=== PATIENT | male | born 1935 | race Caucasian/White ===

== ENCOUNTER → 2017-05-21 | Outpatient (CLI) | payer MEDICARE ==
[~2017-05-21] VITALS: Ht 180.3 cm; Wt 77.1 kg
[~2017-05-21] MED LIST: COGNIUM PO; FOCUS FACTOR PO
== END ==
LOC: PREOP 05:36
PROVIDERS: ATTEND Surgery
DX: Z01.818 Encounter for other preprocedural examination (principal); Z12.11 Encounter for screening for malignant neoplasm of colon; K21.9 Gastro-esophageal reflux disease without esophagitis

== ENCOUNTER 2017-06-02 10:53 | Day surgery (SDC) | payer MEDICARE, OTHER ==
[~2017-06-02] VITALS: Ht 180.3 cm; Wt 77.1 kg
[2017-06-02] MEDS ORDERED: LACTATED RINGERS 1,000 ML IV STA (11:07)
[2017-06-02 11:10] VITALS: BP 160/93
[2017-06-02] MEDS ORDERED: HURRICAINE EXT TUBE (BENZOCAINE) ONE (11:11)
[2017-06-02] MEDS ORDERED: LACTATED RINGERS 1,000 ML IV ONE ×2 (11:12→11:14)
[2017-06-02] MEDS ORDERED: PROPOFOL INJECTION 0 ML IV ONE (11:16)
[2017-06-02] MEDS ORDERED: LIDOCAINE PF 2% 5 ML (XYLOCAINE) VIAL ONE (11:16)
[2017-06-02] MEDS ORDERED: proPOfol 200 MG/20 ML (DIPRIVAN) VIAL IV ONE (11:33)
--- NOTE | 2017-06-02 11:37 | Progress Note-Pre Operative ---
Pre-Operative Progress Note H&P Reviewed The H&P was reviewed, patient examined and no changes noted. Date Seen by Provider: Jun 02, 2017 Time Seen by Provider: 11:37 Date H&P Reviewed: Jun 02, 2017 Time H&P Reviewed: 11:37 Pre-Operative Diagnosis: gerd ROXANA SLOAN DO Jun 02, 2017 11:37
[2017-06-02] MEDS ORDERED: CALC500T7 PO (11:42)
[2017-06-02] MEDS ORDERED: HURRICAINE EXT TUBE (BENZOCAINE) XX ONE (11:45)
--- NOTE | 2017-06-02 11:50 | Progress Note-Post Operative ---
Post-Operative Progess Note Surgeon (s)/Manager Cosmetic (s) Surgeon ROXANA SLOAN DO Manager Cosmetic: na Pre-Operative Diagnosis gerd Post-Operative Diagnosis hiatal hernia, reflux esophagitis Procedure & Operative Findings Date of Procedure 06/02/17 Procedure Performed/Findings egd c biopsies Anesthesia Type per manager process improvement Estimated Blood Loss Estimated blood loss (mL): none Specimens/Packing Specimens Removed antrum, GE ROXANA SLOAN DO Jun 02, 2017 11:50
[2017-06-02] MEDS ORDERED: SUCR1TAB36 PO (11:51)
[2017-06-02] MEDS ORDERED: PANT40TA2 PO (11:51)
--- NOTE | 2017-06-02 11:53 | Discharge Inst-Simple/Standard ---
Discharge Inst-Standard Discharge Medications New, Converted or Re-Newed RX: RX on Chart Patient Instructions/Follow Up Plan of Care/Instructions/FU: 3 weeks fe Activity as Tolerated: Yes Discharge Diet: Regular Diet ROXANA SLOAN DO Jun 02, 2017 11:53
[2017-06-02 12:10] VITALS: BP 134/77
[2017-06-02 12:30] VITALS: BP 146/84
--- NOTE | 2017-06-02 12:36 | Anesthesia-General Post-Op ---
MAC Patient Condition Mental Status/LOC: Same as Preop Cardiovascular: Satisfactory Nausea/Vomiting: Absent Respiratory: Satisfactory Pain: Controlled Complications: Absent Post Op Complications Complications None Follow Up Care/Instructions Patient Instructions None needed. Anesthesiology Discharge Order Discharge Order Patient is doing well, no complaints, stable vital signs, no apparent adverse anesthesia problems. No complications reported per nursing. SNOW LUCIO CRNA Jun 02, 2017 12:36
[2017-06-02 13:05] VITALS: BP 146/84
--- NOTE | 2017-06-02 20:16 | OPERATIVE REPORT ---
DATE OF SERVICE: 06/02/2017 PREOPERATIVE DIAGNOSIS: Gastroesophageal reflux disease. POSTOPERATIVE DIAGNOSES: Hiatal hernia, reflux esophagitis. PROCEDURE: EGD with biopsies. ANESTHESIA: Per DEMAND MANAGER. SURGEON: Roxana Nelson DO ESTIMATED BLOOD LOSS: None. COMPLICATIONS: None. INDICATIONS: The patient is a 81-year-old male, who has been having reflux symptoms. He understands risks and benefits of procedure and wished to proceed with procedure. Consent was on chart. DESCRIPTION OF PROCEDURE: The patient was taken to the endoscopy suite, placed in left later recumbent position. Timeout was performed. Scope was inserted in mouth, esophagus, stomach and into the duodenum without difficulty. There were no polyps, mass or ulcerations within the duodenum. Scope was slowly retracted back into the stomach, which was further insufflated. There was no erythematous changes, polyps, masses or ulcerations within the antrum. Biopsy of the antrum was obtained. Scope was retroflexed noting a hiatal hernia. No other pathology noted. Scope was returned to its normal position, slowly withdrawn in distal esophagus erythematous changes consistent with some reflux esophagitis. Biopsy of the GE junction was obtained. Scope was then slowly retracted back noting no other pathology to completely remove. The patient tolerated procedure well without any complications and taken to recovery room in stable condition. RECOMMENDATIONS: The patient was started on Protonix 40 mg daily and Carafate 1 gram 4 times a day. He will follow up in the office in approximately 3 weeks to discuss pathology results and see how he is doing at that time. Job ID: [id number] DocumentID: [id number] Dictated Date: 06/02/2017 11:56:17 [employer] Department Head Date: 06/02/2017 20:15:59 Dictated By: ROXANA NELSON DO
== END 2017-06-02 13:07 | disposition home or self-care (01) ==
LOC: ENDO 10:53
PROVIDERS: ATTEND Surgery
DX: K21.0 Gastro-esophageal reflux disease with esophagitis (principal); K44.9 Diaphragmatic hernia without obstruction or gangrene

== ENCOUNTER → 2020-10-02 | Outpatient (CLI) | payer MEDICARE, OTHER ==
[~2020-10-02] MED LIST changes: +CALC500T7 PO; +PANT40TA2 PO; +SUCR1TAB36 PO
--- NOTE | 2020-10-02 15:52 | Diagnostic Imaging Report ---
PROCEDURE: CT head without contrast. TECHNIQUE: Multiple contiguous axial images were obtained through the brain without the use of intravenous contrast. Auto Exposure Controls were utilized during the CT exam to meet ALARA standards for radiation dose reduction. INDICATION: Memory disturbance The ventricles are normal in size, shape and position. There are no masses or hemorrhages. There are no extra-axial fluid collections. IMPRESSION: Unremarkable CT head Dictated by: Dictated on workstation # [id number]
== END ==
LOC: RAD 15:45
PROVIDERS: ATTEND Nurse Practitioner Family
DX: R41.3 Other amnesia (principal); R41.89 Other symptoms and signs involving cognitive functions and awareness
CPT/HCPCS: 70450

== ENCOUNTER → 2021-01-01 | Outpatient (CLI) | payer MEDICARE, OTHER ==
--- NOTE | 2021-01-01 12:49 | Diagnostic Imaging Report ---
EXAMINATION: Ultrasound noninvasive. INDICATION: Leg pain. Spectral and color-flow imaging of the lower extremities was performed. There are no prior studies available for comparison. FINDINGS: The ankle-brachial index on the right for the posterior tibial artery is within normal limits at 1.24 (normal 1.0 or greater). The ankle-brachial index on the left is slightly below normal at 0.97. The ankle-brachial indices involving the dorsalis pedis arteries is within normal limits as well. On the right, the ankle-brachial index is 1.12 and on the left 1.06. IMPRESSION: 1. There appears to be fairly good arterial blood flow to both lower extremities. The ankle-brachial index on the left for the posterior tibial artery is slightly below normal limits. 2. If further imaging is desired, then a dedicated bilateral lower extremity arterial Doppler exam should be obtained. Dictated by: Dictated on workstation # [id number]
== END ==
LOC: RAD 10:45
PROVIDERS: ATTEND Pediatrics
DX: I73.9 Peripheral vascular disease, unspecified (principal)
CPT/HCPCS: 93922

== ENCOUNTER → 2021-01-01 | Outpatient (CLI) | payer MEDICARE, OTHER ==
--- NOTE | 2021-01-01 11:15 | Diagnostic Imaging Report ---
PROCEDURE: MRI lumbar spine. TECHNIQUE: Multiplanar, multisequence MRI of the lumbar spine was performed without contrast. DATE: January 01, 2021. COMPARISON: CT abdomen/pelvis November 27, 2010. INDICATION: 85-year-old male, bilateral leg pain. FINDINGS: There is grade 1 anterolisthesis of L4 on L5 relating to facet arthropathy. There is no visualized pars interarticularis defect. There is no evidence of a diffuse marrow infiltrating or replacing process. There is mild disc height loss at L1-L2. There is severe disc height loss at L2-L3. There is mild disc height loss at L3-L4 and L4-L5. The visualized cord and conus medullaris is unremarkable and terminates at the L1-L2 level. There is an incompletely imaged T2 hyperintense right renal lesion not well evaluated on MRI. L1-L2: There is diffuse disc bulge eccentric to the right. There is moderate to severe narrowing of the right lateral recess and mild narrowing of the left lateral recess. The facet joints and ligamentum flavum are unremarkable. There is moderate right foraminal narrowing. There is mild spinal canal stenosis. L2-L3: There is diffuse disc bulge. There is moderate narrowing of the bilateral lateral recesses. The facet joints and ligamentum flavum are unremarkable. There is moderate to severe bilateral foraminal narrowing. There is mild spinal canal stenosis. L3-L4: There is diffuse disc bulge. There is mild to moderate narrowing of the bilateral lateral recesses. There is mild facet degenerative change with ligamentum flavum hypertrophy. There is severe bilateral foraminal narrowing. There is moderate to severe spinal canal stenosis. L4-L5: There is diffuse disc bulge with superimposed disc extrusion extending above the inferior endplate of L4 by 5 mm. There is severe narrowing of the bilateral lateral recesses. There are bilateral facet degenerative changes with ligamentum flavum hypertrophy. There is moderate to severe bilateral foraminal narrowing. There is severe spinal canal stenosis. L5-S1: There is no disc bulge. There are mild bilateral facet degenerative changes without ligamentum flavum hypertrophy. There is no foraminal narrowing. There is no spinal canal stenosis. IMPRESSION: Multilevel degenerative changes of the lumbar spine as described level by level above. Findings are most notable at L4-L5 and L3-L4. Dictated by: Dictated on workstation # [id number]
== END ==
LOC: RAD 10:15
PROVIDERS: ATTEND Internal Medicine
DX: M47.817 Spondylosis without myelopathy or radiculopathy, lumbosacral region (principal); M48.062 Spinal stenosis, lumbar region with neurogenic claudication; M51.26 Other intervertebral disc displacement, lumbar region; M43.16 Spondylolisthesis, lumbar region; M51.36 Other intervertebral disc degeneration, lumbar region; N28.9 Disorder of kidney and ureter, unspecified
CPT/HCPCS: 72148

== ENCOUNTER 2022-07-01 11:29 | Emergency (ER) | payer MEDICARE ==
[~2022-07-01] VITALS: Ht 187 cm; Wt 77.0 kg
[2022-07-01 12:00] LABS: BASOPHILS % (AUTO) 0 % (0-10); EOSINOPHILS % (AUTO) 0 % (0-10); HEMATOCRIT 48 % (40-54); HEMOGLOBIN 16.5 g/dL (13.3-17.7); LYMPHOCYTES # (AUTO) 3.2 10^3/uL (1.0-4.0); LYMPHOCYTES % (AUTO) 24 % (12-44); MEAN CORPUSCULAR HEMOGLOBIN 30 pg (25-34); MEAN CORPUSCULAR HGB CONC 35 g/dL (32-36); MEAN CORPUSCULAR VOLUME 88 fL (80-99); MEAN PLATELET VOLUME 10.5 fL (9.0-12.2); MONOCYTES % (AUTO) 8 % (0-12); NEUTROPHILS # (AUTO) 8.7 10^3/uL (1.8-7.8); NEUTROPHILS % (AUTO) 67 % (42-75); PLATELET COUNT 266 10^3/uL (130-400)
[2022-07-01] MEDS ORDERED: NS IV 1000 ML 1,000 ML IV SCH (12:00)
--- NOTE | 2022-07-01 12:01 | ED General ---
General Chief Complaint: Glucose Problems Stated Complaint: ELEVATED BS | CONFUSED | UNSTEADY Nursing Triage Note: PT ARRIVED PER W/C FROM [facility]. PT SENT BY SACHA ESPINOSA. PT BS WAS 407 THIS AM. PT HAS SEVERE DEMENTIA. PT IS CONFUSED. EXCESSIVE THIRST, WEAKNESS. LABS DRAWN THIS AM TO CHART. Source of Information: Patient, Caregiver Exam Limitations: Physical Impairments History of Present Illness Date Seen by Provider: July 01, 2022 Time Seen by Provider: 11:30 Initial Comments 86-year-old male presents to the ED from [facility]. Caregiver reports that patient had blood work completed this morning which showed blood glucose greater than 400 and A1c at 13.4. Caregiver denies history of diabetes. Patient's only complaint is excessive thirst. Patient has dementia, confusion appears to be within normal limits for patient. Patient denies chest pain, shortness of air, abdominal pain, dysuria. Only medications on patient's list include Pepcid, Zofran, Colace, Donepezil, calcium carbonate. Allergies and Home Medications Allergies Coded Allergies: No Known Drug Allergies (Unverified , 05/21/17) Patient Home Medication List Home Medication List Reviewed: Yes Calcium Carbonate (Tums) 200 Mg Tab.chew, 200 MG PO for INDIGESTION, (Reported) Entered as Reported by: FESTUS SALEEM on 06/02/17 1142 Insulin Determir (Levemir) 100 Unit/Ml Soln, 10 UNITS SQ HS Prescribed by: Elicia Castillo on 07/01/22 1420 Insulin Lispro (Humalog) 100 Unit/Ml Cartridge, 1 UNIT SQ ACHS Prescribed by: Elicia Castillo on 07/01/22 1420 Pantoprazole Sodium (Protonix) 40 Mg Tablet.dr, 40 MG PO DAILY Prescribed by: ROXANA SLOAN on 06/02/17 1151 Sucralfate (Carafate) 1 Gm Tablet, 1 GM PO QID Prescribed by: ROXANA SLOAN on 06/02/17 1151 [Cognium] , 1 TAB PO DAILY, (Reported) Entered as Reported by: YADI AGUILAR on 05/21/17 1056 [Focus Factor] , 1 TAB PO DAILY, (Reported) Entered as Reported by: YADI AGUILAR on 05/21/17 1056 Review of Systems Review of Systems Constitutional: see HPI Past Kztcnid-Qmyofw-Xejfzi Hx Patient Social History Tobacco Use?: No Substance use?: No Alcohol Use?: No Pt feels they are or have been: No Immunizations Up To Date Influenza Vaccine Up-to-Date: Yes; Up-to-Date First/Initial COVID19 Vaccinat: YES Second COVID19 Vaccination Jim: YES Seasonal Allergies Seasonal Allergies: No Past Medical History Surgery/Hospitalization HX: DEMENTIA, GERD, DGD Appendectomy Reproductive Disorders: No Sexually Transmitted Disease: No HIV/AIDS: No Gastroesophageal Reflux Loss of Vision: Bilateral Hearing Impairment: Denies Adverse Reaction/Blood Tranf: No (N/A) Physical Exam Vital Signs Vital Signs - First Documented 07/01/22 07/01/22 11:35 14:43 Temp 36.0 Pulse 85 Resp 18 B/P (MAP) 174/91 (118) Pulse Ox 96 O2 Delivery Room Air Capillary Refill : Less Than 3 Seconds Height, Weight, BMI Height: 5'11.00" Weight: 170lbs. 0.0oz. 77.993027cl; 22.00 BMI Method: General Appearance: No Apparent Distress, WD/WN Neck: Non Tender, Supple Respiratory: Lungs Clear, No Accessory Muscle Use, No Respiratory Distress Cardiovascular: Regular Rate, Rhythm Extremity: Normal Inspection, Normal Range of Motion Neurologic/Psychiatric: Alert, Normal Mood/Affect, Disoriented Skin: Normal Color, Warm/Dry Progress/Results/Core Measures Suspected Sepsis SIRS Temperature: Pulse: 85 Respiratory Rate: 18 Laboratory Tests 07/01/22 11:49: White Blood Count 13.0H Blood Pressure 174 /91 Mean: 118 Laboratory Tests 07/01/22 11:49: Creatinine 1.36H, Platelet Count 266, Total Bilirubin 0.7 Results/Orders Lab Results Laboratory Tests Test 07/01/22 11:44 07/01/22 11:49 07/01/22 12:15 07/01/22 13:09 Range/Units Glucometer 582 *H 465 *H 70-110 MG/DL Beta-Hydroxybutyrate (Chem panel) 0.96 H 0.00-0.27 MMOL/L White Blood Count 13.0 H 4.3-11.0 10^3/uL Red Blood Count 5.43 4.30-5.52 10^6/uL Hemoglobin 16.5 13.3-17.7 g/dL Hematocrit 48 40-54 % Mean Corpuscular Volume 88 80-99 fL Mean Corpuscular Hemoglobin 30 25-34 pg Mean Corpuscular Hemoglobin Concent 35 32-36 g/dL Red Cell Distribution Width 12.0 10.0-14.5 % Platelet Count 266 130-400 10^3/uL Mean Platelet Volume 10.5 9.0-12.2 fL Immature Granulocyte % (Auto) 1 % Neutrophils (%) (Auto) 67 42-75 % Lymphocytes (%) (Auto) 24 12-44 % Monocytes (%) (Auto) 8 0-12 % Eosinophils (%) (Auto) 0 0-10 % Basophils (%) (Auto) 0 0-10 % Neutrophils # (Auto) 8.7 H 1.8-7.8 10^3/uL Lymphocytes # (Auto) 3.2 1.0-4.0 10^3/uL Monocytes # (Auto) 1.0 0.0-1.0 10^3/uL Eosinophils # (Auto) 0.0 0.0-0.3 10^3/uL Basophils # (Auto) 0.0 0.0-0.1 10^3/uL Immature Granulocyte # (Auto) 0.1 0.0-0.1 10^3/uL Sodium Level 135 135-145 MMOL/L Potassium Level 4.3 3.6-5.0 MMOL/L Chloride Level 104 98-107 MMOL/L Carbon Dioxide Level 22 21-32 MMOL/L Anion Gap 9 5-14 MMOL/L Blood Urea Nitrogen 29 H 7-18 MG/DL Creatinine 1.36 H 0.60-1.30 MG/DL Estimat Glomerular Filtration Rate 50 BUN/Creatinine Ratio 21 Glucose Level 622 *H 70-105 MG/DL Calcium Level 9.4 8.5-10.1 MG/DL Corrected Calcium 9.6 8.5-10.1 MG/DL Phosphorus Level 2.5 2.3-4.7 MG/DL Magnesium Level 2.3 1.6-2.4 MG/DL Total Bilirubin 0.7 0.1-1.0 MG/DL Aspartate Amino Transf (AST/SGOT) 20 5-34 U/L Alanine Aminotransferase (ALT/SGPT) 36 0-55 U/L Alkaline Phosphatase 105 40-136 U/L Total Protein 7.2 6.4-8.2 GM/DL Albumin 3.8 3.2-4.5 GM/DL Urine Color YELLOW Urine Clarity CLEAR Urine pH 6.0 5-9 Urine Specific [place] 1.010 L 1.016-1.022 Urine Protein NEGATIVE NEGATIVE Urine Glucose (UA) 3+ H NEGATIVE Urine Ketones 1+ H NEGATIVE Urine Nitrite NEGATIVE NEGATIVE Urine Bilirubin NEGATIVE NEGATIVE Urine Urobilinogen 0.2 < = 1.0 MG/DL Urine Leukocyte Esterase NEGATIVE NEGATIVE Urine RBC (Auto) TRACE-I H NEGATIVE Urine RBC RARE /HPF Urine WBC RARE /HPF Urine Squamous Epithelial Cells RARE /HPF Urine Crystals NONE /LPF Urine Bacteria NEGATIVE /HPF Urine Casts NONE /LPF Urine Mucus NEGATIVE /LPF Urine Culture Indicated NO Test 07/01/22 13:25 07/01/22 13:35 Range/Units Venous Blood pH 7.38 7.31-7.41 Venous Blood Partial Pressure CO2 38 L 40-52 MMHG Venous Blood HCO3 22 22-28 MMOL/L Glucometer 434 *H 70-110 MG/DL My Orders Orders - ELICIA CASTILLO APRN Accucheck Stat ONCE (07/01/22 11:30) Cbc With Automated Diff (07/01/22 11:52) Comprehensive Metabolic Panel (07/01/22 11:52) Magnesium (07/01/22 11:52) Phosphorus (07/01/22 11:52) Ed Iv/Invasive Line Start (07/01/22 11:52) Ns Iv 1000 Ml (Sodium Chloride 0.9%) (07/01/22 12:00) Urinalysis (07/01/22 11:52) Chest 1 View, Ap/Pa Only (07/01/22 12:03) Beta Hydroxybutyrate (07/01/22 12:03) Venous Blood Gas (07/01/22 12:03) Vital Signs/I&O 07/01/22 07/01/22 11:35 14:43 Temp 36.0 Pulse 85 73 Resp 18 B/P (MAP) 174/91 (118) 147/82 Pulse Ox 96 96 O2 Delivery Room Air 07/02/22 00:00 Intake Total 1000 ml Balance 1000 ml Capillary Refill : Less Than 3 Seconds Blood Pressure Mean: 118 Point of Care Testing Finger Stick Blood Glucose: 582 Blood Glucose Action Taken: ELICIA PUBLIC POLICY ASSOCIATE Progress Note : Time: 12:02 Progress Note Patient seen and evaluated, resting comfortably in bed, no acute distress. Based on exam and symptoms, work-up initiated including CBC, CMP, magnesium, phosphorus, UA, venous pH, beta hydroxybutyrate, chest x-ray. IV fluids ordered. 1352 labs reviewed. CBC shows slightly elevated WBCs 13.0. CMP shows elevated BUN 29, creatinine 1.36, GFR 50. Glucose critically high at 622. Beta hydroxybutyrate slightly elevated 0.96. UA shows 1+ ketones. Venous pH is normal at 7.38. After 1 L of fluids, blood sugar dropped to 434. Chest x-ray negative for acute findings. I called and spoke with Dr. Chaney, [facility] hospitalist on-call, regarding patient. She agrees that patient can be discharged with insulin. She recommends 10 units of Levemir at night and lowest dose of sliding scale insulin at meals and bedtime. The nurse called the retirement to give report and to filler picker patient. Discharge instruction and return precautions provided. Diagnostic Imaging Diagonstic Imaging: Xray Plain Films/CT/US/NM/MRI: chest Comments [facility] [address], [facility]. [place], [place] NAME: OFEL[facility]ADAIR R [facility] REC#: [id number] PT STATUS: DEP ER : 1935 PHYSICIAN: ELICIA CASTILLO APRN ADMIT DATE: 07/01/22/ER Signed Date of Exam:07/01/22 CHEST 1 VIEW, AP/PA ONLY CLINICAL INDICATION: Patient with high blood sugar assessing for infection. EXAM: Portable chest x-ray upright view. COMPARISON: None. FINDINGS: Lungs/pleura: There is a 6 mm dense nodule involving the right upper lobe suspected representing calcified granuloma. Otherwise, lungs are clear. There is no pneumothorax. There is no pleural effusion. Mediastinum: Unremarkable. Pulmonary vasculature: Unremarkable. Heart: Unremarkable. Bones/extrathoracic soft tissue: Unremarkable. IMPRESSION: There is no radiographic evidence of acute cardiopulmonary process. Dictated by: Dictated on workstation # [id number] Dict: 07/01/22 1215 Trans: 07/01/22 1752 [id number] Interpreted by: SOFYA KILLIAN MD Electronically signed by: SOFYA KILLIAN MD 07/01/22 5305 Departure Impression Primary Impression: Type 2 diabetes mellitus Disposition: 01 HOME, SELF-CARE Condition: Stable Departure-Patient Inst. Decision time for Depature: 13:59 Referrals: DANICA SAHA APRN (PCP/Family) Primary Care Physician Patient Instructions: Type 2 Diabetes (DC) Add. Discharge Instructions: You will take 10 units of Levemir each night before bed. You will be on a sliding scale insulin. Follow-up with primary care provider. Return for uncontrolled blood sugar, abdominal pain, nausea, vomiting, or any other new, concerning, or worsening symptoms. All discharge instructions reviewed with patient and/or family. Voiced understanding. Scripts Insulin Lispro (Humalog) 100 Unit/Ml Cartridge 1 UNIT SQ ACHS for 30 Days, #1 EA 0 Refills see sliding scale Prov: ELICIA CASTILLO APRN 07/01/22 Insulin Determir (Levemir) 100 Unit/Ml Soln 10 UNITS SQ HS for 30 Days, #1 EA 0 Refills Prov: ELICIA CASTILLO APRN 07/01/22 ELICIA CASTILLO APRN July 01, 2022 12:01
[2022-07-01 12:14] LABS: ALBUMIN 3.8 GM/DL (3.2-4.5); BILIRUBIN,TOTAL 0.7 MG/DL (0.1-1.0); CALCIUM 9.4 MG/DL (8.5-10.1); CREATININE SERUM 1.36 MG/DL (0.60-1.30); MAGNESIUM 2.3 MG/DL (1.6-2.4); PHOSPHORUS 2.5 MG/DL (2.3-4.7); POTASSIUM 4.3 MMOL/L (3.6-5.0); TOTAL PROTEIN 7.2 GM/DL (6.4-8.2)
[2022-07-01 12:21] LABS: BILIRUBIN,URINE NEGATIVE (NEGATIVE); CLARITY,URINE CLEAR; COLOR,URINE YELLOW; GLUCOSE, URINE (UA) 3+ (NEGATIVE); KETONES,URINE 1+ (NEGATIVE); LEUKOCYTE ESTERASE ,URINE NEGATIVE (NEGATIVE); NITRITE,URINE NEGATIVE (NEGATIVE); PROTEIN,URINE NEGATIVE (NEGATIVE)
--- NOTE | 2022-07-01 12:28 | Diagnostic Imaging Report ---
CLINICAL INDICATION: Patient with high blood sugar assessing for infection. EXAM: Portable chest x-ray upright view. COMPARISON: None. FINDINGS: Lungs/pleura: There is a 6 mm dense nodule involving the right upper lobe suspected representing calcified granuloma. Otherwise, lungs are clear. There is no pneumothorax. There is no pleural effusion. Mediastinum: Unremarkable. Pulmonary vasculature: Unremarkable. Heart: Unremarkable. Bones/extrathoracic soft tissue: Unremarkable. IMPRESSION: There is no radiographic evidence of acute cardiopulmonary process. Dictated by: Dictated on workstation # [id number]
[2022-07-01 12:53] LABS: BACTERIA,URINE NEGATIVE /HPF; RBC,URINE RARE /HPF; SQUAMOUS EPITHELIAL CELL,UR RARE /HPF; WBC,URINE RARE /HPF
[2022-07-01] MEDS ORDERED: INSU100V5 SQ (14:20)
[2022-07-01] MEDS ORDERED: PAMI30VI8 SQ (14:20)
[2022-07-01 14:43] VITALS: BP 147/82
== END 2022-07-01 14:47 | disposition home or self-care (01) ==
LOC: EDUNIT# 11:29 → ER 11:30
DX: E11.9 Type 2 diabetes mellitus without complications (principal); R79.89 Other specified abnormal findings of blood chemistry; K21.9 Gastro-esophageal reflux disease without esophagitis; F03.90 Unspecified dementia, unspecified severity, without behavioral disturbance, psychotic disturbance, mood disturbance, and anxiety; Z79.899 Other long term (current) drug therapy
CPT/HCPCS: 36415; 71045; 80053; 81000; 82010; 82805; 82947; 83735; 84100; 85025